=== PATIENT | female | born 1955 | race American Indian/Alaskan Native ===

== ENCOUNTER 2017-08-20 21:33 | Emergency (ER) | payer OTHER, BC ==
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
[2017-08-21] MEDS ORDERED: NORCO 5/325 PO ONE (07:47)
[2017-08-21] MEDS ORDERED: NORVASC PO ONE (07:54)
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
[2017-08-21] MEDS ORDERED: TRIPLE ANTIBIOTIC TP ONE (07:55)
[2017-08-21 08:38] VITALS: BP 161/76
== END 2017-08-21 08:42 | disposition home or self-care (01) ==
LOC: ED 21:33
DX: S00.03XA Contusion of scalp, initial encounter (principal); I10 Essential (primary) hypertension; E78.00 Pure hypercholesterolemia, unspecified; V89.2XXA Person injured in unspecified motor-vehicle accident, traffic, initial encounter; Y93.89 Activity, other specified; Y92.89 Other specified places as the place of occurrence of the external cause; Y99.8 Other external cause status
CPT/HCPCS: 70450; 70486; 99283; A6250